=== PATIENT | female | born 1985 | race Caucasian/White ===

== ENCOUNTER 2018-07-07 13:59 | Emergency (ER) | payer OTHER, SELFPAY ==
[2018-07-07 14:10] VITALS: BP 168/106; PULSE 84; RESP 20; TEMP 37.3; O2SAT 97
[2018-07-07 17:03] LABS: Add Manual Diff / Slide Review NO; Basophils Absolute Auto 100 /uL (0-100); Basophils Percent Auto 0.8 % (0-2); Eosinophils Absolute Auto 300 /uL (0-450); Eosinophils Percent Auto 3.1 % (2-4); Hematocrit 39.9 % (36-46); Hemoglobin 13.2 g/dL (12.0-16.0); Lymphocytes Absolute Auto 3000 /uL (1100-4500); Lymphocytes Percent Auto 27.2 % (25-40); Mean Corpuscular HGB Conc 33.2 % (30-36); Mean Corpuscular Hemoglobin 27.8 PG (26-34); Mean Corpuscular Volume 83.8 fL (80-100); Monocytes Absolute Auto 500 /uL (0-900); Monocytes Percent Auto 4.5 % (3-14); Neutrophils Absolute Auto 7100 /uL (1500-7000); Neutrophils Percent Auto 64.4 % (50-75); Platelet Count 282 X10^3/uL (150-400); Red Blood Cell Count 4.76 X10^6/uL (4.0-5.2); Red Cell Distribution Width 13.2 % (11.6-14.8)
[2018-07-07 17:07] LABS: Alanine Aminotransferase 48 IU/L (9-52); Albumin 4.7 g/dL (3.5-5.0); Albumin Globulin Ratio 1.4 (1.0-2.8); Alkaline Phosphatase 56 U/L (38-126); Aspartate Aminotransferase 32 IU/L (14-36); Bilirubin Total 0.8 mg/dL (0.2-1.3); Blood Urea Nitrogen 7 mg/dL (7-17); Calcium 9.7 mg/dL (8.4-10.2); Carbon Dioxide 24 mmol/L (22-32); Chloride 105 mmol/L (98-107); Estimated Glomerular Filt Rate > 60.0 mL/min (>60); Globulin 3.3 g/dL (1.7-4.1); Glucose 108 mg/dL (70-100); HEMOLYSIS 23 (0-50); Potassium 4.2 mmol/L (3.4-5.1); Sodium 139 mmol/L (137-145)
[2018-07-07 17:09] VITALS: BP 128/91; PULSE 76; RESP 21; O2SAT 97
--- NOTE | 2018-07-07 18:10 | DI.US.S_ITS ---
PROCEDURE: US PELVIC COMPLETE INDICATIONS: RIGHT LOWER QUADRANT PAIN TECHNIQUE: Real-time scanning was performed of the pelvic organs, with image documentation. Additional endovaginal scanning was necessary due to incomplete visualization of the adnexal and endometrial structures by transabdominal scanning. COMPARISON: None. FINDINGS: Transabdominal scanning: Limited scanning through the kidneys shows no hydronephrosis. 4.5 mm nonobstructing right renal stone. No pathologic free abdominal or pelvic fluid. Endovaginal scanning: Uterus: Uterus is normal in size at 6.8 x 3.6 x 4.4 cm. The endometrium measures 7.5 mm in combined thickness. Nabothian cyst is noted. IUD is in appropriate position. Ovaries: Right ovary measures 28 x 25 x 32 mm. Left ovary measures 30 x 12 x 12 m. Right ovarian cyst is noted measuring 26 x 22 x 21 mm. IMPRESSION: 1. Right ovarian cyst. 2. Nonobstructing right renal stone. Dictated by: Saundra Castellon M.D. on 07/07/2018 at 18:24 Approved by: Saundra Castellon M.D. on 07/07/2018 at 18:29
--- NOTE | 2018-07-07 19:14 | DI.CT.S_ITS ---
PROCEDURE: CT ABDOMEN PELVIS W CON INDICATIONS: RLQ pain. Per technologist, the patient reports that they had their appendix removed in 2003. TECHNIQUE: After the administration of intravenous contrast, 5 mm thick sections acquired from the diaphragm to the symphysis. 5 mm coronal and sagittal reformats were acquired. For radiation dose reduction, the following was used: automated exposure control, adjustment of mA and/or kV according to patient size. COMPARISON: None. FINDINGS: Image quality: Excellent. ABDOMEN: Lung bases: Lung bases are clear. Heart size is normal. Solid organs: There is diffuse hypoattenuation most consistent with hepatic steatosis. Gallbladder is unremarkable. Biliary system is non dilated. Pancreas enhances normally. Spleen is normal in size and enhancement. No adrenal nodules. Kidneys demonstrate normal size and enhancement, without hydronephrosis. Subcentimeter hypoattenuating foci within the kidneys bilaterally are too small to fully characterize on this exam, but likely represent renal cysts. There is a punctate nonobstructing nephrolith within the right kidney, best seen on axial image 31 of series 2. Peritoneum and bowel: Bowel loops demonstrate normal wall thickness and caliber. No free fluid or air. Appendix is not clearly identified on this exam, but there are no right lower quadrant inflammatory findings to suggest acute appendicitis. Moderate stool burden throughout the colon. Nodes and vessels: No retroperitoneal or mesenteric adenopathy by size criteria. Aorta and inferior vena cava are normal in size. Miscellaneous: There is an approximately 1.0 cm fat-containing umbilical hernia. PELVIS: Genitourinary: Bladder wall thickness is normal. Miscellaneous: No inguinal hernias or adenopathy. The uterus is present. An intrauterine device is identified within the uterus within the endometrial canal near the fundus. Right ovarian follicle/cyst measure up to 2.7 cm in greatest diameter. Bones: No suspicious bony lesions. No vertebral body compression fractures. IMPRESSION: 1. The appendix is not clearly identified on this exam, consistent with provided clinical history, and there are no right lower quadrant inflammatory findings to suggest an acute appendicitis. 2. Diffuse hepatic hypoattenuation most consistent with hepatic steatosis. 3. Punctate nonobstructing nephrolith within the right kidney. No hydronephrosis. 4. Intrauterine device in the expected location within the endometrial canal near the fundus. 5. Approximately 1.0 cm fat-containing umbilical hernia. Dictated by: Jaspal Ibanez M.D. on 07/07/2018 at 19:58 Approved by: Jaspal Ibanez M.D. on 07/07/2018 at 20:10
--- NOTE | 2018-07-07 19:34 | ED.ABDPAIN ---
HPI - Abdominal Pain <Carmella BoltonMATA-BC - Last Filed: 07/07/18 22:16> General Chief Complaint: Abdominal Pain Stated Complaint: ABDOMINAL PAIN Time Seen by Provider: 07/07/18 16:57 Source: patient Mode of arrival: ambulatory Limitations: no limitations History of Present Illness HPI narrative: Patient is a 32-year-old female nonsmoker who presents with a chief complaint of right lower quadrant pain that has been going on for approximately 1 month. Two days ago Her right lower quadrant pain became much worse. she denies any fever. She denies dysuria urgency or frequency. She denies any chest pain shortness of breath. She does endorse some nausea But no vomiting. She denies any vaginal discharge vaginal bleeding. She denies any blood in her urine. 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 Patient does endorse a recent IUD placement 9 days ago Related Data Home Medications Medication Instructions Recorded Confirmed acetaminophen #0 03/03/17 acetaminophen-pamabrom [Midol] 2 tab PO Q6HP PRN #0 03/03/17 alprazolam [Xanax] 0.5 mg PO BIDP PRN #0 03/03/17 buspirone 10 mg PO TIDP PRN #0 03/03/17 epinephrine 0.3 mg IJ #0 03/03/17 esomeprazole magnesium [Nexium] #0 03/03/17 ibuprofen 800 mg PO TIDP PRN #0 03/03/17 metronidazole [Flagyl] 500 mg PO Q8H #0 03/03/17 rabeprazole [Aciphex] 20 mg PO QDAY #0 03/03/17 triamcinolone acetonide [Kenalog] 1 spray TOPICAL #0 03/03/17 zolpidem 5 mg PO QDAY #0 03/03/17 Previous Rx's Medication Instructions Recorded nitrofurantoin monohyd/m-cryst 100 mg PO BID #20 cap 07/07/18 [Macrobid] Allergies Allergy/AdvReac Type Severity Reaction Status Date / Time ondansetron [ONDANSETRON] Allergy Severe severe Unverified 07/29/17 12:48 nausea. peanut [PEANUT] Allergy Severe ANAPHYLAXIS Unverified 07/29/17 12:48 latex [LATEX] Allergy Unknown RASH Unverified 07/29/17 12:48 Sulfa (Sulfonamide Allergy Unknown RASH Unverified 07/29/17 12:48 Antibiotics) [SULFA (SULFONAMIDE ANTIBIOTICS)] Review of Systems <[facility] - Last Filed: 07/07/18 22:16> Review of Systems GENERAL: Denies chills, fatigue, malaise, fever, sweats. HEENT: Denies sinus pain, ear pain, sore throat, difficulty swallowing, dizziness. RESPIRATORY: Denies dyspnea, cough, wheezing, hemoptysis, sputum. CARDIOVASCULAR: Denies chest pain, palpitations, orthopnea, edema, GASTROINTESTINAL: See HPI : see HPI MUSCULOSKELETAL: denies weakness, joint pain, or bony pain SKIN: Denies rash, skin lesions, or other NEUROLOGIC: Denies weakness, headache, numbness, change in speech, confusion, seizures, incoordination. PSYCHIATRIC: No concerning psychosocial issues. 12 point review of systems is negative except for those stated above PFSH <Carmella Bolton [facility] - Last Filed: 07/07/18 22:16> Social History Smoking Status: Never smoker Social History Smoking Status: Never smoker Exam <Carmella Bolton [facility] - Last Filed: 07/07/18 22:16> Narrative Exam Narrative: GENERAL: This is a well-nourished, well-developed patient, Lying on stretcher HEAD: Atraumatic. Normocephalic. No temporal or scalp tenderness. EYES: Pupils equal round and reactive. Extraocular motions intact. No scleral icterus. No injection or drainage. ENT: Nose without bleeding, purulent drainage or septal hematoma. Throat without erythema, tonsillar hypertrophy or exudate. Uvula midline. Airway patent. NECK: Trachea midline. No JVD or lymphadenopathy. Supple, nontender, no meningeal signs. CARDIOVASCULAR: Regular rate and rhythm without murmurs, gallops, or rubs. RESPIRATORY: Clear to auscultation. Breath sounds equal bilaterally. No wheezes, rales, or rhonchi. no cough. No increased respiratory effort. GASTROINTESTINAL: Abdomen soft, , nondistended. No hepato-splenomegaly, or palpable masses. No guarding. Significant tenderness to palpation of right lower quadrant. negative Yeh sign. Positive bowel sounds all 4 quadrants. EXTREMITIES: No clubbing, cyanosis, or edema. No joint tenderness, effusion, or edema noted. BACK: Nontender without deformity or crepitance. No flank tenderness. NEURO: AOx3. SKIN: No rash or erythema. Initial Vital Signs Initial Vital Signs: Vital Signs Temperature 99.1 F 07/07/18 14:10 Pulse Rate 84 07/07/18 14:10 Respiratory Rate 20 07/07/18 14:10 Blood Pressure 168/106 H 07/07/18 14:10 Pulse Oximetry 97 07/07/18 14:10 <Bar Astudillo DO - Last Filed: 07/07/18 22:27> Initial Vital Signs Initial Vital Signs: Vital Signs Temperature 99.1 F 07/07/18 14:10 Pulse Rate 84 07/07/18 14:10 Respiratory Rate 20 07/07/18 14:10 Blood Pressure 168/106 H 07/07/18 14:10 Pulse Oximetry 97 07/07/18 14:10 Course <ROJELIO WilliamsonBC - Last Filed: 07/07/18 22:16> Course Narrative: I checked on the patient several times throughout her stay in the emergency department Orders Ordered: ED Orders 07/07/18 16:00 Urine Culture Stat Urine Microscopic Stat 07/07/18 16:45 CBC [Complete Blood Count AUTO DIFF] Stat Comprehensive Metabolic Panel Stat 07/07/18 18:10 US pelvic complete Stat 07/07/18 19:14 CT abdomen pelvis w con Stat Discontinued Medications Ketorolac Tromethamine (Toradol) 30 mg IV NOW ONE Stop: 07/07/18 20:35 Last Admin: 07/07/18 20:39 Dose: 30 mg Nitrofurantoin Macrocrystals (Macrobid 100 Mg Capsule) 100 mg PO NOW ONE Stop: 07/07/18 20:35 Last Admin: 07/07/18 20:39 Dose: 100 mg Vital Signs - 8 hr 07/07/18 17:09 07/07/18 21:04 Pulse Rate 76 72 Respiratory Rate 21 16 Blood Pressure [Right Arm] 128/91 H 134/89 Pulse Oximetry 97 99 <DO Liliane Meade Last Filed: 07/07/18 22:27> Orders Ordered: ED Orders 07/07/18 16:00 Urine Culture Stat Urine Microscopic Stat 03/20/19 16:45 CBC [Complete Blood Count AUTO DIFF] Stat Comprehensive Metabolic Panel Stat 07/07/18 18:10 US pelvic complete Stat 07/07/18 19:14 CT abdomen pelvis w con Stat Discontinued Medications Ketorolac Tromethamine (Toradol) 30 mg IV NOW ONE Stop: 07/07/18 20:35 Last Admin: 07/07/18 20:39 Dose: 30 mg Nitrofurantoin Macrocrystals (Macrobid 100 Mg Capsule) 100 mg PO NOW ONE Stop: 07/07/18 20:35 Last Admin: 07/07/18 20:39 Dose: 100 mg Vital Signs - 8 hr 07/07/18 17:09 07/07/18 21:04 Pulse Rate 76 72 Respiratory Rate 21 16 Blood Pressure [Right Arm] 128/91 H 134/89 Pulse Oximetry 97 99 MDM - Abdominal Pain <MATA Williamson- - Last Filed: 07/07/18 22:16> Lab Data Result diagrams: 07/07/18 16:45 07/07/18 16:45 Lab Results 07/07/18 07/07/18 07/07/18 Range/Units 16:00 16:45 16:45 WBC 11.0 (4.5-11.0) X10^3/uL RBC 4.76 (4.0-5.2) X10^6/uL Hgb 13.2 (12.0-16.0) g/dL Hct 39.9 (36-46) % MCV 83.8 (80-100) fL MCH 27.8 (26-34) PG MCHC 33.2 (30-36) % RDW 13.2 (11.6-14.8) % Plt Count 282 (150-400) X10^3/uL Neut % (Auto) 64.4 (50-75) % Lymph % (Auto) 27.2 (25-40) % Boundary % (Auto) 4.5 (3-14) % Eos % (Auto) 3.1 (2-4) % Baso % (Auto) 0.8 (0-2) % Neut # (Auto) 7100 H (4681-7554) /uL Lymph # (Auto) 3000 (8503-9443) /uL [place] # (Auto) 500 (0-900) /uL Eos # (Auto) 300 (0-450) /uL Baso # (Auto) 100 (0-100) /uL Sodium 139 (137-145) mmol/L Potassium 4.2 (3.4-5.1) mmol/L Chloride 105 (98-107) mmol/L Carbon Dioxide 24 (22-32) mmol/L BUN 7 (7-17) mg/dL Creatinine 0.70 (0.52-1.04) mg/dL Estimated GFR > 60.0 (>60) mL/min BUN/Creatinine Ratio 10.0 (6-22) Glucose 108 H (70-100) mg/dL Calcium 9.7 (8.4-10.2) mg/dL Total Bilirubin 0.8 (0.2-1.3) mg/dL AST 32 (14-36) IU/L ALT 48 (9-52) IU/L Alkaline Phosphatase 56 (38-126) U/L Total Protein 8.0 (6.3-8.2) g/dL Albumin 4.7 (3.5-5.0) g/dL Globulin 3.3 (1.7-4.1) g/dL Albumin/Globulin Ratio 1.4 (1.0-2.8) Urine RBC 1-5/hpf (0-5/HPF) Urine WBC 1-5/hpf (0-5/HPF) Ur Squamous Epith Cells 5-10 /hpf H Amorphous Sediment 1+ Urine Bacteria Moderate (10-30) H (None) Urine Mucus 1+ H (Negative) Ur Culture Indicated? Specimen cultured Point of care testing: Point of Care Testing Test Results Negative Urine Dip Bedside Urine Glucose Negative Bedside Urine Bilirubin - Negative Bedside Urine Ketone - Negative Urine Specific [place] 1.025 Bedside Urine Occult Blood + Bedside Urine pH 5.5 Bedside Urine Urobilinogen - Negative Bedside Urine Nitrite - Negative Bedside Urine Leukocytes - Negative Esterase Imaging Data pelvic us: Radiologist's impression: [address] [address] Ultrasound Report Signed Patient: Dixie Ann JMR#: [id number] : 1985Acct:[id number] Age/Sex: 32 / FDate of Service: 07/07/18 Loc: ED Accession Number: [id number] Procedure: US pelvic complete Ordering Provider: Carmella Bolton- PROCEDURE: US PELVIC COMPLETE INDICATIONS: RIGHT LOWER QUADRANT PAIN TECHNIQUE: Real-time scanning was performed of the pelvic organs, with image documentation. Additional endovaginal scanning was necessary due to incomplete visualization of the adnexal and endometrial structures by transabdominal scanning. COMPARISON: None. FINDINGS: Transabdominal scanning: Limited scanning through the kidneys shows no hydronephrosis. 4.5 mm nonobstructing right renal stone. No pathologic free abdominal or pelvic fluid. Endovaginal scanning: Uterus: Uterus is normal in size at 6.8 x 3.6 x 4.4 cm. The endometrium measures 7.5 mm in combined thickness. Nabothian cyst is noted. IUD is in appropriate position. Ovaries: Right ovary measures 28 x 25 x 32 mm. Left ovary measures 30 x 12 x 12 m. Right ovarian cyst is noted measuring 26 x 22 x 21 mm. IMPRESSION: 1. Right ovarian cyst. 2. Nonobstructing right renal stone. Dictated by: Saundar Castellon M.D. on 07/07/2018 at 18:24 Approved by: Saundra Castellon M.D. on 07/07/2018 at 18:29 CT scan - abdomen: Radiologist's impression: [place] [address] CT Scan Report Signed Patient: Dixie Ann JMR#: [id number] : 1985Acct:[id number] Age/Sex: 32 / FDate of Service: 07/07/18 Loc: ED Accession Number: [id number] Procedure: CT abdomen pelvis w con Ordering Provider: Carmella Bolton [facility] PROCEDURE: CT ABDOMEN PELVIS W CON INDICATIONS: RLQ pain. Per technologist, the patient reports that they had their appendix removed in 2003. TECHNIQUE: After the administration of intravenous contrast, 5 mm thick sections acquired from the diaphragm to the symphysis. 5 mm coronal and sagittal reformats were acquired. For radiation dose reduction, the following was used: automated exposure control, adjustment of mA and/or kV according to patient size. COMPARISON: None. FINDINGS: Image quality: Excellent. ABDOMEN: Lung bases: Lung bases are clear. Heart size is normal. Solid organs: There is diffuse hypoattenuation most consistent with hepatic steatosis. Gallbladder is unremarkable. Biliary system is non dilated. Pancreas enhances normally. Spleen is normal in size and enhancement. No adrenal nodules. Kidneys demonstrate normal size and enhancement, without hydronephrosis. Subcentimeter hypoattenuating foci within the kidneys bilaterally are too small to fully characterize on this exam, but likely represent renal cysts. There is a punctate nonobstructing nephrolith within the right kidney, best seen on axial image 31 of series 2. Peritoneum and bowel: Bowel loops demonstrate normal wall thickness and caliber. No free fluid or air. Appendix is not clearly identified on this exam, but there are no right lower quadrant inflammatory findings to suggest acute appendicitis. Moderate stool burden throughout the colon. Nodes and vessels: No retroperitoneal or mesenteric adenopathy by size criteria. Aorta and inferior vena cava are normal in size. Miscellaneous: There is an approximately 1.0 cm fat-containing umbilical hernia. PELVIS: Genitourinary: Bladder wall thickness is normal. Miscellaneous: No inguinal hernias or adenopathy. The uterus is present. An intrauterine device is identified within the uterus within the endometrial canal near the fundus. Right ovarian follicle/cyst measure up to 2.7 cm in greatest diameter. Bones: No suspicious bony lesions. No vertebral body compression fractures. IMPRESSION: 1. The appendix is not clearly identified on this exam, consistent with provided clinical history, and there are no right lower quadrant inflammatory findings to suggest an acute appendicitis. 2. Diffuse hepatic hypoattenuation most consistent with hepatic steatosis. 3. Punctate nonobstructing nephrolith within the right kidney. No hydronephrosis. 4. Intrauterine device in the expected location within the endometrial canal near the fundus. 5. Approximately 1.0 cm fat-containing umbilical hernia. Dictated by: Jaspal Ibanez M.D. on 07/07/2018 at 19:58 Approved by: Jaspal Ibanez M.D. on 07/07/2018 at 20:10 MDM Narrative Medical decision making narrative: The patient is a 30 year old female who presents with right lower quadrant pain that is significant on exam. given her recent IUD placement, she is at higher risk of ovarian cyst and subsequent torsion, so I obtained a pelvic ultrasound. Pelvic ultrasound revealed an ovarian cyst. She thinks she still has an appendix, so I obtained an abdominal CT with contrast. She has no acute findings on CT scan. However she does have bacteria in her urine, so I placed her on Macrobid. A urine culture is pending at this point time. She was given Toradol in the emergency department for pain. I encouraged her to follow up with primary care provider in the next few days. I encouraged her to not take NSAIDs or ibuprofen for 6-8 hours after her Toradol injection. Discussed return precautions of inability keep down fluid, worsening pain etc. Patient no questions or concerns upon discharge. She was afebrile and hemodynamically stable throughout her stay in the emergency department. She remained nontoxic appearing throughout her stay. <Bar Astudillo, DO - Last Filed: 07/07/18 22:27> Lab Data Lab Results 07/07/18 07/07/18 07/07/18 Range/Units 16:00 16:45 16:45 WBC 11.0 (4.5-11.0) X10^3/uL RBC 4.76 (4.0-5.2) X10^6/uL Hgb 13.2 (12.0-16.0) g/dL Hct 39.9 (36-46) % MCV 83.8 (80-100) fL MCH 27.8 (26-34) PG MCHC 33.2 (30-36) % RDW 13.2 (11.6-14.8) % Plt Count 282 (150-400) X10^3/uL Neut % (Auto) 64.4 (50-75) % Lymph % (Auto) 27.2 (25-40) % Boundary % (Auto) 4.5 (3-14) % Eos % (Auto) 3.1 (2-4) % Baso % (Auto) 0.8 (0-2) % Neut # (Auto) 7100 H (1608-2354) /uL Lymph # (Auto) 3000 (7558-5051) /uL [place] # (Auto) 500 (0-900) /uL Eos # (Auto) 300 (0-450) /uL Baso # (Auto) 100 (0-100) /uL Sodium 139 (137-145) mmol/L Potassium 4.2 (3.4-5.1) mmol/L Chloride 105 (98-107) mmol/L Carbon Dioxide 24 (22-32) mmol/L BUN 7 (7-17) mg/dL Creatinine 0.70 (0.52-1.04) mg/dL Estimated GFR > 60.0 (>60) mL/min BUN/Creatinine Ratio 10.0 (6-22) Glucose 108 H (70-100) mg/dL Calcium 9.7 (8.4-10.2) mg/dL Total Bilirubin 0.8 (0.2-1.3) mg/dL AST 32 (14-36) IU/L ALT 48 (9-52) IU/L Alkaline Phosphatase 56 (38-126) U/L Total Protein 8.0 (6.3-8.2) g/dL Albumin 4.7 (3.5-5.0) g/dL Globulin 3.3 (1.7-4.1) g/dL Albumin/Globulin Ratio 1.4 (1.0-2.8) Urine RBC 1-5/hpf (0-5/HPF) Urine WBC 1-5/hpf (0-5/HPF) Ur Squamous Epith Cells 5-10 /hpf H Amorphous Sediment 1+ Urine Bacteria Moderate (10-30) H (None) Urine Mucus 1+ H (Negative) Ur Culture Indicated? Specimen cultured Point of care testing: Point of Care Testing Test Results Negative Urine Dip Bedside Urine Glucose Negative Bedside Urine Bilirubin - Negative Bedside Urine Ketone - Negative Urine Specific [place] 1.025 Bedside Urine Occult Blood + Bedside Urine pH 5.5 Bedside Urine Urobilinogen - Negative Bedside Urine Nitrite - Negative Bedside Urine Leukocytes - Negative Esterase Discharge Plan Departure Patient Disposition: Home Clinical Impression: UTI (urinary tract infection) Qualifiers: Urinary tract infection type: site unspecified Hematuria presence: with hematuria Qualified Code(s): N39.0 - Urinary tract infection, site not specified Ovarian cyst Qualifiers: Laterality: right Qualified Code(s): N83.201 - Unspecified ovarian cyst, right side Discharge Date/Time: 07/07/18 21:07 Interventions: ED Discharge Assessment Last Done: 07/07/18 21:06 Instructions: DI for Urinary Tract Infection (UTI), DI for Ovarian Cyst Activity Restrictions/Additional Instructions: I am starting you on an antibiotic for her urinary tract infection. Please follow up with primary care provider regarding her ovarian cyst. Monitor for fevers, inability keep down fluids and signs of worsening. Please evaluated if you have any acute concerns. Prescriptions: New nitrofurantoin monohyd/m-cryst [Macrobid] 100 mg capsule 100 mg PO BID Qty: 20 RF: 0 No Action rabeprazole [Aciphex] 20 MG tablet,delayed release (DR/EC) 20 mg PO QDAY Qty: 0 RF: 0 zolpidem 5 MG tablet 5 mg PO QDAY Qty: 0 RF: 0 metronidazole [Flagyl] 500 MG tablet 500 mg PO Q8H Qty: 0 RF: 0 buspirone 10 MG tablet 10 mg PO TIDP PRNQty: 0 RF: 0 epinephrine 0.3 MG/0.3 ML auto-injector 0.3 mg IJ Qty: 0 RF: 0 ibuprofen 800 MG tablet 800 mg PO TIDP PRNQty: 0 RF: 0 triamcinolone acetonide [Kenalog] 63 GM aerosol 1 spray Topical Qty: 0 RF: 0 acetaminophen 650 mg tablet extended release Qty: 0 RF: 0 alprazolam [Xanax] 0.5 MG tablet 0.5 mg PO BIDP PRNQty: 0 RF: 0 acetaminophen-pamabrom [Midol] 500 MG/25 MG tablet 2 tab PO Q6HP PRNQty: 0 RF: 0 esomeprazole magnesium [Nexium] 40 mg capsule,delayed release(DR/EC) Qty: 0 RF: 0 Referrals: Kevin Cox [Primary Care Provider] - <Bar Astudillo DO - Last Filed: 07/07/18 22:27> Cosign ED Attending Caitlyn Attestation: I was available for consultation during this patient's emergency department encounter
[2018-07-07 20:00] LABS: RBC Urine 1-5/HPF (0-5/HPF); Squamous Epithelial Cell Urine 5-10 /HPF; WBC Urine 1-5/HPF (0-5/HPF)
[2018-07-07 20:01] LABS: Amorphous Sediment Urine 1+; Bacteria Urine Moderate (10-30); Culture Indicated Urine Specimen Cultured; Mucus Urine 1+ (Negative)
[2018-07-07] MEDS: KETOROLAC 60 MG/2 ML VIAL 30 MG IV (20:39)
[2018-07-07] MEDS: NITROFURANTOIN ER 100 MG CAPSULE PO (20:39)
[2018-07-07 21:04] VITALS: BP 134/89; PULSE 72; RESP 16; O2SAT 99
== END 2018-07-07 21:07 | disposition home or self-care (01) ==
PROVIDERS: Emergency Provider Nurse Practitioner Family; Family Provider Radiology Diagnostic Radiology; PCP Radiology Diagnostic Radiology
DX: N39.0 Urinary tract infection, site not specified (principal); N83.201 Unspecified ovarian cyst, right side
CPT/HCPCS: 36591; 74177; 76830; 76856; 80053; 81003; 81015; 81025; 85025; 87086; 96374; 99282; 99285; J1885; Q9967

== ENCOUNTER 2018-07-12 17:58 | Emergency (ER) | payer OTHER, SELFPAY ==
[2018-07-12 18:27] VITALS: BP 156/95; PULSE 79; RESP 18; TEMP 36.9; O2SAT 100; BMI 27.4
[2018-07-12 19:30] LABS: Bacteria Urine Moderate (10-30); Culture Indicated Urine Cult Not Indicated; RBC Urine 1-5/HPF (0-5/HPF); Squamous Epithelial Cell Urine None Seen; WBC Urine 0-1/HPF (0-5/HPF)
--- NOTE | 2018-07-12 20:47 | ED_ITS ---
HPI - Abdominal Pain General Chief Complaint: Abdominal Pain Stated Complaint: RT LOWER ABD PAIN Time Seen by Provider: 07/12/18 20:20 Source: patient Mode of arrival: ambulatory Limitations: no limitations History of Present Illness HPI narrative: Patient is an otherwise healthy 32-year-old female here for evaluation of right lower quadrant abdominal pain. She was seen here in the emergency department recently and was diagnosed with the urinary tract infection. She is currently on Macrobid. She also recently had a IUD placed. Patient states she is not sexually active. No history of STDs. He is not concerned about STDs. She states she is also having a foul-smelling vaginal discharge. Denies any urinary symptoms. Denies any changes in bowel habits. She returns today for continued right lower quadrant abdominal pain. 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 She did have an ultrasound during her last visit here which was relatively unremarkable except for a right-sided ovarian cyst which she states that this is not new. The IUD is in place per that ultrasound. Related Data Home Medications Medication Instructions Recorded Confirmed acetaminophen #0 03/03/17 acetaminophen-pamabrom [Midol] 2 tab PO Q6HP PRN #0 03/03/17 alprazolam [Xanax] 0.5 mg PO BIDP PRN #0 03/03/17 buspirone 10 mg PO TIDP PRN #0 03/03/17 epinephrine 0.3 mg IJ #0 03/03/17 esomeprazole magnesium [Nexium] #0 03/03/17 ibuprofen 800 mg PO TIDP PRN #0 03/03/17 metronidazole [Flagyl] 500 mg PO Q8H #0 03/03/17 rabeprazole [Aciphex] 20 mg PO QDAY #0 03/03/17 triamcinolone acetonide [Kenalog] 1 spray TOPICAL #0 03/03/17 zolpidem 5 mg PO QDAY #0 03/03/17 Previous Rx's Medication Instructions Recorded nitrofurantoin monohyd/m-cryst 100 mg PO BID #20 cap 07/07/18 [Macrobid] doxycycline hyclate 100 mg PO BID 14 Days #28 cap 07/12/18 Allergies Allergy/AdvReac Type Severity Reaction Status Date / Time ondansetron [ONDANSETRON] Allergy Severe severe Verified 07/12/18 22:02 nausea. peanut [PEANUT] Allergy Severe ANAPHYLAXIS Verified 07/12/18 22:02 latex [LATEX] Allergy Unknown RASH Verified 07/12/18 22:02 Sulfa (Sulfonamide Allergy Unknown RASH Verified 07/12/18 22:02 Antibiotics) [SULFA (SULFONAMIDE ANTIBIOTICS)] povidone-iodine Allergy Rash Verified 07/12/18 22:02 [From Betadine] soap [From Betadine] Allergy Rash Verified 07/12/18 22:02 Review of Systems Constitutional Denies fatigue and Denies headache(s) ENT Ears, Nose, Mouth, and Throat: Denies headache(s) Cardiovascular Denies chest pain and Denies dyspnea Respiratory Denies dyspnea Gastrointestinal Gastrointestinal: Reports abdominal pain, Denies diarrhea, Denies nausea and Denies vomiting Genitourinary Denies dysuria, Reports pelvic pain and Reports vaginal discharge Musculoskeletal Denies back pain, Denies myalgias and Denies arthralgias Integumentary/Breasts Denies rash Neurologic Denies headache(s) Endocrine Denies fatigue Hematologic/Lymphatic Denies easy bleeding and Denies easy bruising [facility] Medical History Healthy adult (Acute) Social History Smoking Status: Never smoker Social History Smoking Status: Never smoker Exam Initial Vital Signs Initial Vital Signs: Vital Signs Temperature 98.5 F 07/12/18 18:27 Pulse Rate 79 07/12/18 18:27 Respiratory Rate 18 07/12/18 18:27 Blood Pressure 156/95 H 07/12/18 18:27 Pulse Oximetry 100 07/12/18 18:27 Const General: cooperative, healthy appearing, comfortable, well developed, well groomed and No acute distress Orientation: alert, awake and oriented x3 HENMT Head: normal to inspection and normocephalic Resp Effort & Inspection: normal respiratory effort Auscultation: clear to auscultation bilaterally Cardio Rate: regular rate Rhythm: regular rhythm GI Inspection: non-distended Palpation: soft, No firm and tender (Right adnexa) External Female Exam: external appearance normal Speculum Exam - Cervix: cervical tenderness Bimanual Exam- Vagina & Uterus: cervical tenderness Bimanual Exam- Adnexa, other: adnexal tenderness on the right and no masses noted Skin Lesions: no lesions Rashes: no rashes Neuro General: alert, awake and oriented x3 Cognition: normal cognition Speech: speech normal Extrem General: normal to inspection and capillary refill normal Psych Appearance: grossly normal and well kempt Course Orders Ordered: ED Orders 07/12/18 19:00 Urine Microscopic Stat Discontinued Medications Ceftriaxone Sodium (Rocephin) 250 mg IM NOW ONE Stop: 07/12/18 21:25 Last Admin: 07/12/18 22:42 Dose: 250 mg Doxycycline Hyclate (Vibramycin) 100 mg PO NOW ONE Stop: 07/12/18 21:26 Last Admin: 07/12/18 22:03 Dose: 100 mg Ibuprofen (Advil) 800 mg PO NOW ONE Stop: 07/12/18 22:05 Last Admin: 07/12/18 22:06 Dose: 800 mg Vital Signs - 8 hr 07/12/18 18:27 07/12/18 23:01 Temperature 98.5 F Pulse Rate 79 74 Respiratory Rate 18 14 Blood Pressure 156/95 H 148/89 H Pulse Oximetry 100 97 MDM - Abdominal Pain Lab Data Attestation: I reviewed the patient's lab results. Lab Results 07/12/18 Range/Units 19:00 Urine RBC 1-5/hpf (0-5/HPF) Urine WBC 0-1/hpf (0-5/HPF) Ur Squamous Epith Cells None seen Urine Bacteria Moderate (10-30) H (None) Ur Culture Indicated? Cult not indicated Point of care testing: Point of Care Testing Test Results Negative Urine Dip Bedside Urine Glucose Negative Bedside Urine Bilirubin - Negative Bedside Urine Ketone - Negative Urine Specific Pickerel 1.025 Bedside Urine Occult Blood +/- Bedside Urine pH 6.0 Bedside Urine Protein - Negative Bedside Urine Urobilinogen - Negative Bedside Urine Nitrite - Negative Bedside Urine Leukocytes - Negative Esterase MDM Narrative Medical decision making narrative: Patient is currently on Macrobid for urinary tract infection. Her urine today is unremarkable however she is half-way through her treatment. I feel it is prudent for her to continue the antibiotic treatment. Patient did recently have an IUD placed. She does have some thick discharge. Does have cervical motion tenderness and right adnexa tenderness. I do have concerns for PID. She does not seem to be tender midline over the uterus. Given her recent IUD placement I am concerned about a potential infection for this. I discussed the case with Dr. Barlow who is on-call for OB this evening who stated that current practice is such that the IUD can be left in place and the patient can be treated prior to removal. I feel that this is warranted given her follow-up with measurement operator in 2 days. She was given Rocephin. Will send home with doxycycline. Will hold on any further ultrasound for now. Patient was given return precautions. She expressed understanding and agreement plan. Discharge Plan Departure Patient Disposition: Home Clinical Impression: Pelvic inflammatory disease (PID) Discharge Date/Time: 07/12/18 23:03 Interventions: ED Discharge Assessment Last Done: 07/12/18 23:01 Instructions: DI for Pelvic Inflammatory Disease Activity Restrictions/Additional Instructions: I have concern today based on your physical exam that you have PID. You were given antibiotics here in the emergency department and a prescription for this. Like we discussed here in the ER I did talk with my OB provider who stated that leaving the IUD in is not unreasonable to see if the antibiotic treatment helps. Keep your appointment on Thursday with your own OB provider. Return to the emergency department for any new or worsening symptoms Prescriptions: New doxycycline hyclate 100 mg capsule 100 mg PO BID 14 Days Qty: 28 RF: 0 No Action rabeprazole [Aciphex] 20 MG tablet,delayed release (DR/EC) 20 mg PO QDAY Qty: 0 RF: 0 zolpidem 5 MG tablet 5 mg PO QDAY Qty: 0 RF: 0 metronidazole [Flagyl] 500 MG tablet 500 mg PO Q8H Qty: 0 RF: 0 buspirone 10 MG tablet 10 mg PO TIDP PRNQty: 0 RF: 0 epinephrine 0.3 MG/0.3 ML auto-injector 0.3 mg IJ Qty: 0 RF: 0 ibuprofen 800 MG tablet 800 mg PO TIDP PRNQty: 0 RF: 0 triamcinolone acetonide [Kenalog] 63 GM aerosol 1 spray Topical Qty: 0 RF: 0 acetaminophen 650 mg tablet extended release Qty: 0 RF: 0 alprazolam [Xanax] 0.5 MG tablet 0.5 mg PO BIDP PRNQty: 0 RF: 0 acetaminophen-pamabrom [Midol] 500 MG/25 MG tablet 2 tab PO Q6HP PRNQty: 0 RF: 0 esomeprazole magnesium [Nexium] 40 mg capsule,delayed release(DR/EC) Qty: 0 RF: 0 nitrofurantoin monohyd/m-cryst [Macrobid] 100 mg capsule 100 mg PO BID Qty: 20 RF: 0 Referrals: eKvin Cox [Primary Care Provider] -
--- NOTE | 2018-07-12 21:06 | PC.NURSE ---
Stand by assist for bimanual pelvic exam by Dr Astudillo. Pt with obvious tenderness but tolerated well. Warm blankets given to abd for comfort.
[2018-07-12] MEDS: DOXYCYCLINE HYCLATE 100 MG TABLET PO (22:03)
[2018-07-12] MEDS: IBUPROFEN 400 MG TABLET 800 MG PO (22:06)
[2018-07-12] MEDS: cefTRIAXone 500 MG VIAL 250 MG IM (22:42)
[2018-07-12 23:01] VITALS: BP 148/89; PULSE 74; RESP 14; O2SAT 97
== END 2018-07-12 23:03 | disposition home or self-care (01) ==
PROVIDERS: Emergency Provider Emergency Medicine; Family Provider Radiology Diagnostic Radiology; PCP Radiology Diagnostic Radiology
DX: N73.9 Female pelvic inflammatory disease, unspecified (principal)
CPT/HCPCS: 81003; 81015; 81025; 96372; 99282; 99284; J0696

== ENCOUNTER 2018-07-13 14:07 | Emergency (ER) | payer OTHER, SELFPAY ==
[2018-07-13 14:15] VITALS: BP 150/98; PULSE 81; RESP 18; TEMP 36.9; O2SAT 98
--- NOTE | 2018-07-13 14:31 | DI.US.S_ITS ---
PROCEDURE: US PELVIC COMPLETE INDICATIONS: CONITNUED RIGHT PELVIC PAIN TECHNIQUE: Real-time scanning was performed of the pelvic organs, with image documentation. Additional endovaginal scanning was necessary due to incomplete visualization of the adnexal and endometrial structures by transabdominal scanning. COMPARISON: [facility], CT, CT ABDOMEN PELVIS W CON, 07/07/2018, 19:33. [facility], US, US PELVIC COMPLETE, 07/07/2018, 18:40. FINDINGS: Transabdominal scanning: Limited scanning through the kidneys shows no hydronephrosis. No pathologic free abdominal or pelvic fluid. Endovaginal scanning: Uterus: Uterus is normal in size at 3.1 x 5.2 x 7.7 cm. The endometrial canal contains a IUD centrally positioned. Ovaries: The right ovary measures 3.3 x 3.1 x 4.3 cm overall, with a right ovarian cyst now measuring 3.9 x 3.0 x 2.8 cm with complex low-level internal echoes (previously measuring 2.6 x 2.2 x 2.1 cm 07/07/18). The left ovary measures 2.8 x 1.6 x 2.2 cm. IMPRESSION: Centrally positioned IUD within the endometrial canal. Note is again made of a complex appearing nabothian cyst at the right cervix measuring 1.3 x 1.0 x 1.0 cm, containing low-level internal echoes. Additionally, the right ovary contains a enlarging cyst that had previously measured approximately 2.6 cm in maximal dimension and now measures 3.9 cm (6 days difference). This likely indicates a hemorrhagic right ovarian cyst as the underlying cause of that appearance. Followup evaluation of both the cervical complex cyst in the right complex ovarian cyst is recommended in 6-8 weeks. Should these persist followup by gynecological consultation would be recommended. Dictated by: Amador Musa M.D. on 07/13/2018 at 15:35 Approved by: Amador Musa M.D. on 07/13/2018 at 15:40
--- NOTE | 2018-07-13 14:36 | ED.FEMALEGU ---
HPI - Female Genitourinary <GURJIT Shields - Last Filed: 07/13/18 22:32> General Chief complaint: Urogenital-Female Stated complaint: lower right abdominal pain,cannot feel right leg Time Seen by Provider: 07/13/18 14:13 Source: patient Mode of arrival: ambulatory Limitations: no limitations History of Present Illness HPI Narrative: 32-year-old healthy female that is a nonsmoker for complaint of having pain to her right lower quadrant/pelvic region for the past week. She has been seen in the emergency room for this a couple times approximately 6 days ago she had an ultrasound that showed a right ovarian cyst and also a CT that also showed right ovarian cyst no other acute findings were found. She was seen in the emergency room last night due to pain and was treated for concern for PID with antibiotics. She reports worsening pain today. She states the pain radiates down into her left thigh area. She states she has had a thickened vaginal discharge over no vaginal bleeding. She has an IUD which was verified in place last night while in the emergency room. She denies any urinary symptoms at this timeframe. No fevers. Positive p.o. intake. No nausea vomiting. She denies any stressors relievers of her discomfort. No flank pain. MD Complaint: pelvic pain Related Data Home Medications Medication Instructions Recorded Confirmed Midol 2 tab PO Q6HP PRN #0 03/03/17 07/13/18 acetaminophen 650 mg PO PRN PRN #0 03/03/17 07/13/18 alprazolam [Xanax] 0.5 mg PO BID PRN #0 03/03/17 07/13/18 epinephrine 0.3 mg IJ PRN PRN #0 03/03/17 07/13/18 ibuprofen 800 mg PO TIDP PRN #0 03/03/17 07/13/18 clobetasol 1 applic TOPICAL DIRECTED 07/13/18 07/13/18 fluocinolone and shower cap 1 applic TOPICAL DIRECTED 07/13/18 07/13/18 ketoconazole 1 applic TOPICAL DIRECTED 07/13/18 07/13/18 omeprazole magnesium [Prilosec OTC] 20 mg PO QAM 07/13/18 07/13/18 Previous Rx's Medication Instructions Recorded nitrofurantoin monohyd/m-cryst 100 mg PO BID #20 cap 07/07/18 [Macrobid] doxycycline hyclate 100 mg PO BID 14 Days #28 cap 07/12/18 hydrocodone-acetaminophen [Tarkio] 1 tab PO Q6H PRN #10 tab 07/13/18 Allergies Allergy/AdvReac Type Severity Reaction Status Date / Time ondansetron [ONDANSETRON] Allergy Severe severe Verified 07/12/18 22:02 nausea. peanut [PEANUT] Allergy Severe ANAPHYLAXIS Verified 07/12/18 22:02 latex [LATEX] Allergy Unknown RASH Verified 07/12/18 22:02 Sulfa (Sulfonamide Allergy Unknown RASH Verified 07/12/18 22:02 Antibiotics) [SULFA (SULFONAMIDE ANTIBIOTICS)] povidone-iodine Allergy Rash Verified 07/12/18 22:02 [From Betadine] soap [From Betadine] Allergy Rash Verified 07/12/18 22:02 Review of Systems <GURJIT Shields - Last Filed: 07/13/18 22:32> Constitutional Denies chills, Denies fever(s), Denies lethargy and Denies weakness Eyes Denies change in vision, Denies eye discharge, Denies irritation and Denies loss of vision ENT Ears, Nose, Mouth, and Throat: Denies change in voice, Denies neck pain, Denies sore throat and Denies throat swelling Cardiovascular Denies chest pain, Denies irregular heart rhythm, Denies lightheadedness, Denies palpitations and Denies orthopnea Respiratory Denies wheezing Gastrointestinal Comments: Right pelvic pain Genitourinary Denies hematuria, Denies flank pain, Denies urinary incontinence and Denies urinary urgency Musculoskeletal Denies neck pain Integumentary/Breasts Denies pruritus, Denies erythema, Denies rash and Denies wounds Neurologic Denies confusion, Denies loss of vision and Denies weakness Psychiatric Denies anxiety, Denies confusion, Denies depression, Denies homicidal ideation and Denies suicidal ideation Endocrine Denies palpitations Hematologic/Lymphatic Denies easy bruising Allergic/Immunologic Denies urticaria, Denies throat swelling and Denies wheezing PFSH <GURJIT Shields - Last Filed: 07/13/18 22:32> Medical History Healthy adult (Acute) Social History Smoking Status: Never smoker Social History Smoking Status: Never smoker Exam <GURJIT Shields - Last Filed: 07/13/18 22:32> Initial Vital Signs Initial Vital Signs: Vital Signs Temperature 98.4 F 07/13/18 14:15 Pulse Rate 81 07/13/18 14:15 Respiratory Rate 18 07/13/18 14:15 Blood Pressure 150/98 H 07/13/18 14:15 Pulse Oximetry 98 07/13/18 14:15 Const General: cooperative and well developed Nutritional Appearance: well nourished Orientation: alert, awake, oriented x3 and not confused HENMT Mouth: oral mucosae normal and moist mucous membranes Eyes Conjunctivae: conjunctivae normal Sclera: sclerae normal Pupils: PERRL EOM: EOM intact bilaterally Cardio Rate: regular rate Rhythm: regular rhythm Heart Sounds: no click, no gallops, no murmurs and no rubs Pulses: normal peripheral pulses GI Inspection: non-distended Palpation: soft, no hepatosplenomegaly, No guarding, No pulsatile mass and No tender Auscultation: normal bowel sounds Other: Tenderness to the right pelvic region. General: No CVA tenderness Neuro General: alert, oriented x3, gait normal and no focal motor deficits Speech: speech normal Extrem General: full ROM, no clubbing, cyanosis or edema, no pedal edema and no calf tenderness Other: Right leg with no tenderness. No signs of trauma. Distal sensation is intact. Distal range of motions intact for distal pulses are intact. <Bar Astudillo DO - Last Filed: 07/13/18 23:16> Initial Vital Signs Initial Vital Signs: Vital Signs Temperature 98.4 F 07/13/18 14:15 Pulse Rate 81 07/13/18 14:15 Respiratory Rate 18 07/13/18 14:15 Blood Pressure 150/98 H 07/13/18 14:15 Pulse Oximetry 98 07/13/18 14:15 Course <GURJIT Shields - Last Filed: 07/13/18 22:32> Orders Ordered: ED Orders 07/13/18 14:31 US pelvic complete Stat 07/13/18 14:40 Complete Blood Count AUTO DIFF Stat Comprehensive Metabolic Panel Stat Lipase Stat Discontinued Medications Diphenhydramine HCl (Benadryl) 25 mg IV NOW ONE Stop: 07/13/18 14:32 Last Admin: 07/13/18 14:46 Dose: 25 mg Hydromorphone HCl (Dilaudid) 0.5 mg IV NOW ONE Stop: 07/13/18 14:32 Last Admin: 07/13/18 14:46 Dose: 0.5 mg Sodium Chloride (Normal Saline 0.9%) 1,000 mls @ 1,000 mls/hr IV BOLUS ONE Stop: 07/13/18 15:30 Last Infusion: 07/13/18 17:23 Dose: 0 mls/hr Admin: 07/13/18 14:46 Dose: 1,000 mls/hr Vital Signs - 8 hr 07/13/18 14:15 Temperature 98.4 F Pulse Rate 81 Respiratory Rate 18 Blood Pressure 150/98 H Pulse Oximetry 98 <Bar Astudillo DO - Last Filed: 07/13/18 23:16> Orders Ordered: ED Orders 07/13/18 14:31 US pelvic complete Stat 07/13/18 14:40 Complete Blood Count AUTO DIFF Stat Comprehensive Metabolic Panel Stat Lipase Stat Discontinued Medications Diphenhydramine HCl (Benadryl) 25 mg IV NOW ONE Stop: 07/13/18 14:32 Last Admin: 07/13/18 14:46 Dose: 25 mg Hydromorphone HCl (Dilaudid) 0.5 mg IV NOW ONE Stop: 07/13/18 14:32 Last Admin: 07/13/18 14:46 Dose: 0.5 mg Sodium Chloride (Normal Saline 0.9%) 1,000 mls @ 1,000 mls/hr IV BOLUS ONE Stop: 07/13/18 15:30 Last Infusion: 07/13/18 17:23 Dose: 0 mls/hr Admin: 07/13/18 14:46 Dose: 1,000 mls/hr Vital Signs - 8 hr 07/13/18 14:15 Temperature 98.4 F Pulse Rate 81 Respiratory Rate 18 Blood Pressure 150/98 H Pulse Oximetry 98 MDM - Female Genitourinary <GURJIT Shields - Last Filed: 07/13/18 22:32> Lab Data Result diagrams: 07/13/18 14:40 07/13/18 14:40 Lab Results 07/13/18 07/13/18 Range/Units 14:40 14:40 WBC 9.6 (4.5-11.0) X10^3/uL RBC 4.74 (4.0-5.2) X10^6/uL Hgb 13.4 (12.0-16.0) g/dL Hct 39.2 (36-46) % MCV 82.7 (80-100) fL MCH 28.2 (26-34) PG MCHC 34.2 (30-36) % RDW 13.4 (11.6-14.8) % Plt Count 234 (150-400) X10^3/uL Neut % (Auto) 66.6 (50-75) % Lymph % (Auto) 23.8 L (25-40) % [place] % (Auto) 6.2 (3-14) % Eos % (Auto) 2.5 (2-4) % Baso % (Auto) 0.9 (0-2) % Neut # (Auto) 6400 (4058-3905) /uL Lymph # (Auto) 2300 (9557-0815) /uL [place] # (Auto) 600 (0-900) /uL Eos # (Auto) 200 (0-450) /uL Baso # (Auto) 100 (0-100) /uL Sodium 137 (137-145) mmol/L Potassium 4.0 (3.4-5.1) mmol/L Chloride 103 (98-107) mmol/L Carbon Dioxide 23 (22-32) mmol/L BUN 10 (7-17) mg/dL Creatinine 0.80 (0.52-1.04) mg/dL Estimated GFR > 60.0 (>60) mL/min BUN/Creatinine Ratio 12.5 (6-22) Glucose 101 H (70-100) mg/dL Calcium 9.6 (8.4-10.2) mg/dL Total Bilirubin 0.6 (0.2-1.3) mg/dL AST 35 (14-36) IU/L ALT 37 (9-52) IU/L Alkaline Phosphatase 53 (38-126) U/L Total Protein 7.3 (6.3-8.2) g/dL Albumin 4.4 (3.5-5.0) g/dL Globulin 2.9 (1.7-4.1) g/dL Albumin/Globulin Ratio 1.5 (1.0-2.8) Lipase 74 (23-300) U/L Point of Care Testing Test Results Negative Urine Dip Bedside Urine Glucose Negative Bedside Urine Bilirubin - Negative Bedside Urine Ketone - Negative Urine Specific [place] 1.020 Bedside Urine Occult Blood +/- Bedside Urine pH 6.0 Bedside Urine Protein - Negative Bedside Urine Urobilinogen - Negative Bedside Urine Nitrite - Negative Bedside Urine Leukocytes +/- 15 Esterase Imaging Data Pelvic ultrasound : Radiologist's impression: [address] [address] Ultrasound Report Signed Patient: Dixie Ann JMR#: [id number] : 1985Acct:[id number] Age/Sex: 32 / FDate of Service: 07/13/18 Loc: ED Accession Number: [id number] Procedure: US pelvic complete Ordering Provider: Miguel Cole PROCEDURE: US PELVIC COMPLETE INDICATIONS: CONITNUED RIGHT PELVIC PAIN TECHNIQUE: Real-time scanning was performed of the pelvic organs, with image documentation. Additional endovaginal scanning was necessary due to incomplete visualization of the adnexal and endometrial structures by transabdominal scanning. COMPARISON: [facility], CT, CT ABDOMEN PELVIS W CON, 07/07/2018, 19:33. [facility], US, US PELVIC COMPLETE, 07/07/2018, 18:40. FINDINGS: Transabdominal scanning: Limited scanning through the kidneys shows no hydronephrosis. No pathologic free abdominal or pelvic fluid. Endovaginal scanning: Uterus: Uterus is normal in size at 3.1 x 5.2 x 7.7 cm. The endometrial canal contains a IUD centrally positioned. Ovaries: The right ovary measures 3.3 x 3.1 x 4.3 cm overall, with a right ovarian cyst now measuring 3.9 x 3.0 x 2.8 cm with complex low-level internal echoes (previously measuring 2.6 x 2.2 x 2.1 cm 07/07/18). The left ovary measures 2.8 x 1.6 x 2.2 cm. IMPRESSION: Centrally positioned IUD within the endometrial canal. Note is again made of a complex appearing nabothian cyst at the right cervix measuring 1.3 x 1.0 x 1.0 cm, containing low-level internal echoes. Additionally, the right ovary contains a enlarging cyst that had previously measured approximately 2.6 cm in maximal dimension and now measures 3.9 cm (6 days difference). This likely indicates a hemorrhagic right ovarian cyst as the underlying cause of that appearance. Followup evaluation of both the cervical complex cyst in the right complex ovarian cyst is recommended in 6-8 weeks. Should these persist followup by gynecological consultation would be recommended. Dictated by: Amador Musa M.D. on 07/13/2018 at 15:35 Approved by: Amador Musa M.D. on 07/13/2018 at 15:40 MDM Narrative Medical decision making narrative: Pelvic ultrasound was obtained and shows worsening right ovarian cyst now 3.9 cm versus 2.5 last week. Complex presentation indicating most likely hemorrhagic cyst. Will have patient follow up with her forgesmith in next couple days with her scheduled appointment. She is treated with Tarkio for breakthrough pain not covered by [id number] ibuprofen. For any worsening symptoms return to the emergency room. <Bar Astudillo, - Last Filed: 07/13/18 23:16> Lab Data Lab Results 07/13/18 07/13/18 Range/Units 14:40 14:40 WBC 9.6 (4.5-11.0) X10^3/uL RBC 4.74 (4.0-5.2) X10^6/uL Hgb 13.4 (12.0-16.0) g/dL Hct 39.2 (36-46) % MCV 82.7 (80-100) fL MCH 28.2 (26-34) PG MCHC 34.2 (30-36) % RDW 13.4 (11.6-14.8) % Plt Count 234 (150-400) X10^3/uL Neut % (Auto) 66.6 (50-75) % Lymph % (Auto) 23.8 L (25-40) % [place] % (Auto) 6.2 (3-14) % Eos % (Auto) 2.5 (2-4) % Baso % (Auto) 0.9 (0-2) % Neut # (Auto) 6400 (6025-3309) /uL Lymph # (Auto) 2300 (7732-2348) /uL [place] # (Auto) 600 (0-900) /uL Eos # (Auto) 200 (0-450) /uL Baso # (Auto) 100 (0-100) /uL Sodium 137 (137-145) mmol/L Potassium 4.0 (3.4-5.1) mmol/L Chloride 103 (98-107) mmol/L Carbon Dioxide 23 (22-32) mmol/L BUN 10 (7-17) mg/dL Creatinine 0.80 (0.52-1.04) mg/dL Estimated GFR > 60.0 (>60) mL/min BUN/Creatinine Ratio 12.5 (6-22) Glucose 101 H (70-100) mg/dL Calcium 9.6 (8.4-10.2) mg/dL Total Bilirubin 0.6 (0.2-1.3) mg/dL AST 35 (14-36) IU/L ALT 37 (9-52) IU/L Alkaline Phosphatase 53 (38-126) U/L Total Protein 7.3 (6.3-8.2) g/dL Albumin 4.4 (3.5-5.0) g/dL Globulin 2.9 (1.7-4.1) g/dL Albumin/Globulin Ratio 1.5 (1.0-2.8) Lipase 74 (23-300) U/L Point of Care Testing Test Results Negative Urine Dip Bedside Urine Glucose Negative Bedside Urine Bilirubin - Negative Bedside Urine Ketone - Negative Urine Specific [place] 1.020 Bedside Urine Occult Blood +/- Bedside Urine pH 6.0 Bedside Urine Protein - Negative Bedside Urine Urobilinogen - Negative Bedside Urine Nitrite - Negative Bedside Urine Leukocytes +/- 15 Esterase Discharge Plan Departure Patient Disposition: Home Clinical Impression: Ovarian cyst Qualifiers: Laterality: right Qualified Code(s): N83.201 - Unspecified ovarian cyst, right side Discharge Date/Time: 07/13/18 17:24 Interventions: ED Discharge Assessment Last Done: 07/13/18 17:22 Instructions: DI for Ovarian Cyst Activity Restrictions/Additional Instructions: Laboratory results today were unremarkable. Pelvic ultrasound shows right ovarian cyst that has increased in size to 3.9 cm rice 2.5 cm last week. Pain presents as being secondary to the ovarian cyst. Follow-up with your forgesmith provider in the next couple days as scheduled. Use [id number] ibuprofen as needed for any discomfort. Small amount of Tarkio is prescribed for any breakthrough pain. No driving on the Tarkio. For any worsening symptoms return to the emergency room. Prescriptions: New hydrocodone-acetaminophen [Tarkio] 5-325 mg tablet 1 tab PO Q6H PRN (Reason: pain) Qty: 10 RF: 0 No Action epinephrine 0.3 MG/0.3 ML auto-injector 0.3 mg IJ PRN PRN (Reason: Allergic Reaction) Qty: 0 RF: 0 ibuprofen 800 MG tablet 800 mg PO TIDP PRN (Reason: pain) Qty: 0 RF: 0 acetaminophen 650 mg tablet extended release 650 mg PO PRN PRN (Reason: pain) Qty: 0 RF: 0 alprazolam [Xanax] 0.5 MG tablet 0.5 mg PO BID PRN (Reason: Anxiety) Qty: 0 RF: 0 Midol 500 MG/25 MG tablet 2 tab PO Q6HP PRN (Reason: cramps) Qty: 0 RF: 0 doxycycline hyclate 100 mg capsule 100 mg PO BID 14 Days Qty: 28 RF: 0 nitrofurantoin monohyd/m-cryst [Macrobid] 100 mg capsule 100 mg PO BID Qty: 20 RF: 0 ketoconazole 2 % shampoo 1 applic topical DIRECTED RF: 0 clobetasol 0.05 % solution 1 applic topical DIRECTED RF: 0 fluocinolone and shower cap 0.01 % oil 1 applic topical DIRECTED RF: 0 Prilosec OTC 20 mg Tablet,Delayed Release (Dr/Ec) 20 mg PO QAM RF: 0 Referrals: Kevin Cox [Primary Care Provider] - <Bar Astudillo DO - Last Filed: 07/13/18 23:16> Cosign ED Attending Mickyature Attestation: I was available for consultation during this patient's emergency department encounter
[2018-07-13] MEDS: HYDROMORPHONE 1 MG INJ 0.5 MG IV (14:46)
[2018-07-13] MEDS: SODIUM CHLORIDE 0.9% 1,000 ML 1000 ML IV (14:46)
[2018-07-13] MEDS: diphenhydrAMINE 50 MG/ML VIAL 25 MG IV (14:46)
[2018-07-13 14:49] LABS: Add Manual Diff / Slide Review NO; Basophils Absolute Auto 100 /uL (0-100); Basophils Percent Auto 0.9 % (0-2); Eosinophils Absolute Auto 200 /uL (0-450); Eosinophils Percent Auto 2.5 % (2-4); Hematocrit 39.2 % (36-46); Hemoglobin 13.4 g/dL (12.0-16.0); Lymphocytes Absolute Auto 2300 /uL (1100-4500); Lymphocytes Percent Auto 23.8 % (25-40); Mean Corpuscular HGB Conc 34.2 % (30-36); Mean Corpuscular Hemoglobin 28.2 PG (26-34); Mean Corpuscular Volume 82.7 fL (80-100); Monocytes Absolute Auto 600 /uL (0-900); Monocytes Percent Auto 6.2 % (3-14); Neutrophils Absolute Auto 6400 /uL (1500-7000); Neutrophils Percent Auto 66.6 % (50-75); Platelet Count 234 X10^3/uL (150-400); Red Blood Cell Count 4.74 X10^6/uL (4.0-5.2); Red Cell Distribution Width 13.4 % (11.6-14.8); White Blood Cell Count 9.6 X10^3/uL (4.5-11.0)
[2018-07-13 15:06] LABS: Alanine Aminotransferase 37 IU/L (9-52); Albumin 4.4 g/dL (3.5-5.0); Albumin Globulin Ratio 1.5 (1.0-2.8); Alkaline Phosphatase 53 U/L (38-126); Aspartate Aminotransferase 35 IU/L (14-36); BUN Creatinine Ratio 12.5 (6-22); Bilirubin Total 0.6 mg/dL (0.2-1.3); Blood Urea Nitrogen 10 mg/dL (7-17); Calcium 9.6 mg/dL (8.4-10.2); Carbon Dioxide 23 mmol/L (22-32); Chloride 103 mmol/L (98-107); Estimated Glomerular Filt Rate > 60.0 mL/min (>60); Globulin 2.9 g/dL (1.7-4.1); Glucose 101 mg/dL (70-100); HEMOLYSIS < 15 (0-50); Lipase 74 U/L (23-300); Sodium 137 mmol/L (137-145); Total Protein 7.3 g/dL (6.3-8.2)
--- NOTE | 2018-07-13 15:41 | PC.NURSE ---
in stretcher/ on cell phone, so at bedside. states pain much better.
--- NOTE | 2018-07-13 17:14 | ED_ITS ---
HPI - Female Genitourinary <GURJIT Shields - Last Filed: 07/13/18 22:32> General Chief complaint: Urogenital-Female Stated complaint: lower right abdominal pain,cannot feel right leg Time Seen by Provider: 07/13/18 14:13 Source: patient Mode of arrival: ambulatory Limitations: no limitations History of Present Illness HPI Narrative: 32-year-old healthy female that is a nonsmoker for complaint of having pain to her right lower quadrant/pelvic region for the past week. She has been seen in the emergency room for this a couple times approximately 6 days ago she had an ultrasound that showed a right ovarian cyst and also a CT that also showed right ovarian cyst no other acute findings were found. She was seen in the emergency room last night due to pain and was treated for concern for PID with antibiotics. She reports worsening pain today. She states the pain radiates down into her left thigh area. She states she has had a thickened vaginal discharge over no vaginal bleeding. She has an IUD which was verified in place last night while in the emergency room. She denies any urinary symptoms at this timeframe. No fevers. Positive p.o. intake. No nausea vomiting. She denies any stressors relievers of her discomfort. No flank pain. MD Complaint: pelvic pain Related Data Home Medications Medication Instructions Recorded Confirmed Midol 2 tab PO Q6HP PRN #0 03/03/17 07/13/18 acetaminophen 650 mg PO PRN PRN #0 03/03/17 07/13/18 alprazolam [Xanax] 0.5 mg PO BID PRN #0 03/03/17 07/13/18 epinephrine 0.3 mg IJ PRN PRN #0 03/03/17 07/13/18 ibuprofen 800 mg PO TIDP PRN #0 03/03/17 07/13/18 clobetasol 1 applic TOPICAL DIRECTED 07/13/18 07/13/18 fluocinolone and shower cap 1 applic TOPICAL DIRECTED 07/13/18 07/13/18 ketoconazole 1 applic TOPICAL DIRECTED 07/13/18 07/13/18 omeprazole magnesium [Prilosec OTC] 20 mg PO QAM 07/13/18 07/13/18 Previous Rx's Medication Instructions Recorded nitrofurantoin monohyd/m-cryst 100 mg PO BID #20 cap 07/07/18 [Macrobid] doxycycline hyclate 100 mg PO BID 14 Days #28 cap 07/12/18 hydrocodone-acetaminophen [Newton] 1 tab PO Q6H PRN #10 tab 07/13/18 Allergies Allergy/AdvReac Type Severity Reaction Status Date / Time ondansetron [ONDANSETRON] Allergy Severe severe Verified 07/12/18 22:02 nausea. peanut [PEANUT] Allergy Severe ANAPHYLAXIS Verified 07/12/18 22:02 latex [LATEX] Allergy Unknown RASH Verified 07/12/18 22:02 Sulfa (Sulfonamide Allergy Unknown RASH Verified 07/12/18 22:02 Antibiotics) [SULFA (SULFONAMIDE ANTIBIOTICS)] povidone-iodine Allergy Rash Verified 07/12/18 22:02 [From Betadine] soap [From Betadine] Allergy Rash Verified 07/12/18 22:02 Review of Systems <GURJIT Shields - Last Filed: 07/13/18 22:32> Constitutional Denies chills, Denies fever(s), Denies lethargy and Denies weakness Eyes Denies change in vision, Denies eye discharge, Denies irritation and Denies loss of vision ENT Ears, Nose, Mouth, and Throat: Denies change in voice, Denies neck pain, Denies sore throat and Denies throat swelling Cardiovascular Denies chest pain, Denies irregular heart rhythm, Denies lightheadedness, Denies palpitations and Denies orthopnea Respiratory Denies wheezing Gastrointestinal Comments: Right pelvic pain Genitourinary Denies hematuria, Denies flank pain, Denies urinary incontinence and Denies urinary urgency Musculoskeletal Denies neck pain Integumentary/Breasts Denies pruritus, Denies erythema, Denies rash and Denies wounds Neurologic Denies confusion, Denies loss of vision and Denies weakness Psychiatric Denies anxiety, Denies confusion, Denies depression, Denies homicidal ideation and Denies suicidal ideation Endocrine Denies palpitations Hematologic/Lymphatic Denies easy bruising Allergic/Immunologic Denies urticaria, Denies throat swelling and Denies wheezing PFSH <GURJIT Shields - Last Filed: 07/13/18 22:32> Medical History Healthy adult (Acute) Social History Smoking Status: Never smoker Social History Smoking Status: Never smoker Exam <GURJIT Shields - Last Filed: 07/13/18 22:32> Initial Vital Signs Initial Vital Signs: Vital Signs Temperature 98.4 F 07/13/18 14:15 Pulse Rate 81 07/13/18 14:15 Respiratory Rate 18 07/13/18 14:15 Blood Pressure 150/98 H 07/13/18 14:15 Pulse Oximetry 98 07/13/18 14:15 Const General: cooperative and well developed Nutritional Appearance: well nourished Orientation: alert, awake, oriented x3 and not confused HENMT Mouth: oral mucosae normal and moist mucous membranes Eyes Conjunctivae: conjunctivae normal Sclera: sclerae normal Pupils: PERRL EOM: EOM intact bilaterally Cardio Rate: regular rate Rhythm: regular rhythm Heart Sounds: no click, no gallops, no murmurs and no rubs Pulses: normal peripheral pulses GI Inspection: non-distended Palpation: soft, no hepatosplenomegaly, No guarding, No pulsatile mass and No tender Auscultation: normal bowel sounds Other: Tenderness to the right pelvic region. General: No CVA tenderness Neuro General: alert, oriented x3, gait normal and no focal motor deficits Speech: speech normal Extrem General: full ROM, no clubbing, cyanosis or edema, no pedal edema and no calf tenderness Other: Right leg with no tenderness. No signs of trauma. Distal sensation is intact. Distal range of motions intact for distal pulses are intact. <Bar Astudillo DO - Last Filed: 07/13/18 23:16> Initial Vital Signs Initial Vital Signs: Vital Signs Temperature 98.4 F 07/13/18 14:15 Pulse Rate 81 07/13/18 14:15 Respiratory Rate 18 07/13/18 14:15 Blood Pressure 150/98 H 07/13/18 14:15 Pulse Oximetry 98 07/13/18 14:15 Course <GURJIT Shields - Last Filed: 07/13/18 22:32> Orders Ordered: ED Orders 07/13/18 14:31 US pelvic complete Stat 07/13/18 14:40 Complete Blood Count AUTO DIFF Stat Comprehensive Metabolic Panel Stat Lipase Stat Discontinued Medications Diphenhydramine HCl (Benadryl) 25 mg IV NOW ONE Stop: 07/13/18 14:32 Last Admin: 07/13/18 14:46 Dose: 25 mg Hydromorphone HCl (Dilaudid) 0.5 mg IV NOW ONE Stop: 07/13/18 14:32 Last Admin: 07/13/18 14:46 Dose: 0.5 mg Sodium Chloride (Normal Saline 0.9%) 1,000 mls @ 1,000 mls/hr IV BOLUS ONE Stop: 07/13/18 15:30 Last Infusion: 07/13/18 17:23 Dose: 0 mls/hr Admin: 07/13/18 14:46 Dose: 1,000 mls/hr Vital Signs - 8 hr 07/13/18 14:15 Temperature 98.4 F Pulse Rate 81 Respiratory Rate 18 Blood Pressure 150/98 H Pulse Oximetry 98 <Bar Astudillo DO - Last Filed: 07/13/18 23:16> Orders Ordered: ED Orders 07/13/18 14:31 US pelvic complete Stat 07/13/18 14:40 Complete Blood Count AUTO DIFF Stat Comprehensive Metabolic Panel Stat Lipase Stat Discontinued Medications Diphenhydramine HCl (Benadryl) 25 mg IV NOW ONE Stop: 07/13/18 14:32 Last Admin: 07/13/18 14:46 Dose: 25 mg Hydromorphone HCl (Dilaudid) 0.5 mg IV NOW ONE Stop: 07/13/18 14:32 Last Admin: 07/13/18 14:46 Dose: 0.5 mg Sodium Chloride (Normal Saline 0.9%) 1,000 mls @ 1,000 mls/hr IV BOLUS ONE Stop: 07/13/18 15:30 Last Infusion: 07/13/18 17:23 Dose: 0 mls/hr Admin: 07/13/18 14:46 Dose: 1,000 mls/hr Vital Signs - 8 hr 07/13/18 14:15 Temperature 98.4 F Pulse Rate 81 Respiratory Rate 18 Blood Pressure 150/98 H Pulse Oximetry 98 MDM - Female Genitourinary <GURJIT Sheilds - Last Filed: 07/13/18 22:32> Lab Data Result diagrams: 07/13/18 14:40 07/13/18 14:40 Lab Results 07/13/18 07/13/18 Range/Units 14:40 14:40 WBC 9.6 (4.5-11.0) X10^3/uL RBC 4.74 (4.0-5.2) X10^6/uL Hgb 13.4 (12.0-16.0) g/dL Hct 39.2 (36-46) % MCV 82.7 (80-100) fL MCH 28.2 (26-34) PG MCHC 34.2 (30-36) % RDW 13.4 (11.6-14.8) % Plt Count 234 (150-400) X10^3/uL Neut % (Auto) 66.6 (50-75) % Lymph % (Auto) 23.8 L (25-40) % [place] % (Auto) 6.2 (3-14) % Eos % (Auto) 2.5 (2-4) % Baso % (Auto) 0.9 (0-2) % Neut # (Auto) 6400 (9634-3402) /uL Lymph # (Auto) 2300 (2725-9477) /uL [place] # (Auto) 600 (0-900) /uL Eos # (Auto) 200 (0-450) /uL Baso # (Auto) 100 (0-100) /uL Sodium 137 (137-145) mmol/L Potassium 4.0 (3.4-5.1) mmol/L Chloride 103 (98-107) mmol/L Carbon Dioxide 23 (22-32) mmol/L BUN 10 (7-17) mg/dL Creatinine 0.80 (0.52-1.04) mg/dL Estimated GFR > 60.0 (>60) mL/min BUN/Creatinine Ratio 12.5 (6-22) Glucose 101 H (70-100) mg/dL Calcium 9.6 (8.4-10.2) mg/dL Total Bilirubin 0.6 (0.2-1.3) mg/dL AST 35 (14-36) IU/L ALT 37 (9-52) IU/L Alkaline Phosphatase 53 (38-126) U/L Total Protein 7.3 (6.3-8.2) g/dL Albumin 4.4 (3.5-5.0) g/dL Globulin 2.9 (1.7-4.1) g/dL Albumin/Globulin Ratio 1.5 (1.0-2.8) Lipase 74 (23-300) U/L Point of Care Testing Test Results Negative Urine Dip Bedside Urine Glucose Negative Bedside Urine Bilirubin - Negative Bedside Urine Ketone - Negative Urine Specific [place] 1.020 Bedside Urine Occult Blood +/- Bedside Urine pH 6.0 Bedside Urine Protein - Negative Bedside Urine Urobilinogen - Negative Bedside Urine Nitrite - Negative Bedside Urine Leukocytes +/- 15 Esterase Imaging Data Pelvic ultrasound : Radiologist's impression: [address] [address] Ultrasound Report Signed Patient: Dixie Ann JMR#: [id number] : 1985Acct:[id number] Age/Sex: 32 / FDate of Service: 07/13/18 Loc: ED Accession Number: [id number] Procedure: US pelvic complete Ordering Provider: Miguel Cole PROCEDURE: US PELVIC COMPLETE INDICATIONS: CONITNUED RIGHT PELVIC PAIN TECHNIQUE: Real-time scanning was performed of the pelvic organs, with image documentation. Additional endovaginal scanning was necessary due to incomplete visualization of the adnexal and endometrial structures by transabdominal scanning. COMPARISON: Merged With [facility], CT, CT ABDOMEN PELVIS W CON, 07/07/2018, 19:33. Merged With [facility], US, US PELVIC COMPLETE, 07/07/2018, 18:40. FINDINGS: Transabdominal scanning: Limited scanning through the kidneys shows no hydronephrosis. No pathologic free abdominal or pelvic fluid. Endovaginal scanning: Uterus: Uterus is normal in size at 3.1 x 5.2 x 7.7 cm. The endometrial canal contains a IUD centrally positioned. Ovaries: The right ovary measures 3.3 x 3.1 x 4.3 cm overall, with a right ovarian cyst now measuring 3.9 x 3.0 x 2.8 cm with complex low-level internal echoes (previously measuring 2.6 x 2.2 x 2.1 cm 07/07/18). The left ovary measures 2.8 x 1.6 x 2.2 cm. IMPRESSION: Centrally positioned IUD within the endometrial canal. Note is again made of a complex appearing nabothian cyst at the right cervix measuring 1.3 x 1.0 x 1.0 cm, containing low-level internal echoes. Additionally, the right ovary contains a enlarging cyst that had previously measured approximately 2.6 cm in maximal dimension and now measures 3.9 cm (6 days difference). This likely indicates a hemorrhagic right ovarian cyst as the underlying cause of that appearance. Followup evaluation of both the cervical complex cyst in the right complex ovarian cyst is recommended in 6-8 weeks. Should these persist followup by gynecological consultation would be recommended. Dictated by: Amador Musa M.D. on 07/13/2018 at 15:35 Approved by: Amador Musa M.D. on 07/13/2018 at 15:40 MDM Narrative Medical decision making narrative: Pelvic ultrasound was obtained and shows worsening right ovarian cyst now 3.9 cm versus 2.5 last week. Complex presen tation indicating most likely hemorrhagic cyst. Will have patient follow up with her log getter in next couple days with her scheduled appointment. She is treated with Newton for breakthrough pain not covered by [id number] ibuprofen. For any worsening symptoms return to the emergency room. <Bar Astudillo, DO - Last Filed: 07/13/18 23:16> Lab Data Lab Results 07/13/18 07/13/18 Range/Units 14:40 14:40 WBC 9.6 (4.5-11.0) X10^3/uL RBC 4.74 (4.0-5.2) X10^6/uL Hgb 13.4 (12.0-16.0) g/dL Hct 39.2 (36-46) % MCV 82.7 (80-100) fL MCH 28.2 (26-34) PG MCHC 34.2 (30-36) % RDW 13.4 (11.6-14.8) % Plt Count 234 (150-400) X10^3/uL Neut % (Auto) 66.6 (50-75) % Lymph % (Auto) 23.8 L (25-40) % [place] % (Auto) 6.2 (3-14) % Eos % (Auto) 2.5 (2-4) % Baso % (Auto) 0.9 (0-2) % Neut # (Auto) 6400 (6037-6828) /uL Lymph # (Auto) 2300 (3744-5992) /uL [place] # (Auto) 600 (0-900) /uL Eos # (Auto) 200 (0-450) /uL Baso # (Auto) 100 (0-100) /uL Sodium 137 (137-145) mmol/L Potassium 4.0 (3.4-5.1) mmol/L Chloride 103 (98-107) mmol/L Carbon Dioxide 23 (22-32) mmol/L BUN 10 (7-17) mg/dL Creatinine 0.80 (0.52-1.04) mg/dL Estimated GFR > 60.0 (>60) mL/min BUN/Creatinine Ratio 12.5 (6-22) Glucose 101 H (70-100) mg/dL Calcium 9.6 (8.4-10.2) mg/dL Total Bilirubin 0.6 (0.2-1.3) mg/dL AST 35 (14-36) IU/L ALT 37 (9-52) IU/L Alkaline Phosphatase 53 (38-126) U/L Total Protein 7.3 (6.3-8.2) g/dL Albumin 4.4 (3.5-5.0) g/dL Globulin 2.9 (1.7-4.1) g/dL Albumin/Globulin Ratio 1.5 (1.0-2.8) Lipase 74 (23-300) U/L Point of Care Testing Test Results Negative Urine Dip Bedside Urine Glucose Negative Bedside Urine Bilirubin - Negative Bedside Urine Ketone - Negative Urine Specific [place] 1.020 Bedside Urine Occult Blood +/- Bedside Urine pH 6.0 Bedside Urine Protein - Negative Bedside Urine Urobilinogen - Negative Bedside Urine Nitrite - Negative Bedside Urine Leukocytes +/- 15 Esterase Discharge Plan Departure Patient Disposition: Home Clinical Impression: Ovarian cyst Qualifiers: Laterality: right Qualified Code(s): N83.201 - Unspecified ovarian cyst, right side Discharge Date/Time: 07/13/18 17:24 Interventions: ED Discharge Assessment Last Done: 07/13/18 17:22 Instructions: DI for Ovarian Cyst Activity Restrictions/Additional Instructions: Laboratory results today were unremarkable. Pelvic ultrasound shows right ovarian cyst that has increased in size to 3.9 cm rice 2.5 cm last week. Pain presents as being secondary to the ovarian cyst. Follow-up with your log getter provider in the next couple days as scheduled. Use [id number] ibuprofen as needed for any discomfort. Small amount of [place] is prescribed for any breakthrough pain. No driving on the [place]. For any worsening symptoms return to the emergency room. Prescriptions: New hydrocodone-acetaminophen [[place]] 5-325 mg tablet 1 tab PO Q6H PRN (Reason: pain) Qty: 10 RF: 0 No Action epinephrine 0.3 MG/0.3 ML auto-injector 0.3 mg IJ PRN PRN (Reason: Allergic Reaction) Qty: 0 RF: 0 ibuprofen 800 MG tablet 800 mg PO TIDP PRN (Reason: pain) Qty: 0 RF: 0 acetaminophen 650 mg tablet extended release 650 mg PO PRN PRN (Reason: pain) Qty: 0 RF: 0 alprazolam [Xanax] 0.5 MG tablet 0.5 mg PO BID PRN (Reason: Anxiety) Qty: 0 RF: 0 Midol 500 MG/25 MG tablet 2 tab PO Q6HP PRN (Reason: cramps) Qty: 0 RF: 0 doxycycline hyclate 100 mg capsule 100 mg PO BID 14 Days Qty: 28 RF: 0 nitrofurantoin monohyd/m-cryst [Macrobid] 100 mg capsule 100 mg PO BID Qty: 20 RF: 0 ketoconazole 2 % shampoo 1 applic topical DIRECTED RF: 0 clobetasol 0.05 % solution 1 applic topical DIRECTED RF: 0 fluocinolone and shower cap 0.01 % oil 1 applic topical DIRECTED RF: 0 Prilosec OTC 20 mg Tablet,Delayed Release (Dr/Ec) 20 mg PO QAM RF: 0 Referrals: Kevin Cox [Primary Care Provider] - <Bar Astudillo DO - Last Filed: 07/13/18 23:16> Cosign ED Attending Cossanjivature Attestation: I was available for consultation during this patient's emergency department encounter
== END 2018-07-13 17:24 | disposition home or self-care (01) ==
PROVIDERS: Emergency Provider Nurse Practitioner Family; Family Provider Radiology Diagnostic Radiology; PCP Radiology Diagnostic Radiology
DX: N83.201 Unspecified ovarian cyst, right side (principal)
CPT/HCPCS: 76856; 80053; 81003; 81025; 83690; 85025; 96361; 96374; 96375; 99283; 99284; J1170; J1200

== ENCOUNTER 2019-12-14 08:22 | Emergency (ER) | payer OTHER, SELFPAY ==
[2019-12-14 08:35] VITALS: BP 137/89; PULSE 77; RESP 16; TEMP 37; O2SAT 97; BMI 29.2
--- NOTE | 2019-12-14 08:35 | DI.RAD.S_ITS ---
PROCEDURE: XR FOOT RT MIN 3V INDICATIONS: Foot injury TECHNIQUE: 3 views of the foot were acquired. COMPARISON: None. FINDINGS: Bones: No fractures or dislocations. No suspicious bony lesions. Soft tissues: No tibiotalar joint effusion. Achilles tendon appears normal. IMPRESSION: No acute finding. Dictated by: Kameron Art M.D. on 12/14/2019 at 9:13 Approved by: Kameron Art M.D. on 12/14/2019 at 9:14
--- NOTE | 2019-12-14 09:09 | ED.LOWEXIN ---
HPI - Extremity Injury (Lower) General Chief Complaint: Extremity Injury, Lower Stated Complaint: right foot injury today Time Seen by Provider: 12/14/19 08:35 Source: patient Mode of arrival: Wheelchair Limitations: no limitations History of Present Illness HPI Narrative: Patient is a 34-year-old female presents with right foot injury. She slipped going down the stairs this morning while caring a box. She has significant pain on the plantar side her foot. She is unable to ambulate except for on the side of her foot. She denies any injury to her ankle or the knee. No numbness tingling or weakness MD complaint: foot injury Related Data Home Medications Medication Instructions Recorded Confirmed Midol 2 tab PO Q6HP PRN #0 03/03/17 07/13/18 acetaminophen 650 mg PO PRN PRN #0 03/03/17 07/13/18 alprazolam [Xanax] 0.5 mg PO BID PRN #0 03/03/17 07/13/18 epinephrine 0.3 mg IJ PRN PRN #0 03/03/17 07/13/18 ibuprofen 800 mg PO TIDP PRN #0 03/03/17 07/13/18 clobetasol 1 applic TOPICAL DIRECTED 07/13/18 07/13/18 fluocinolone and shower cap 1 applic TOPICAL DIRECTED 07/13/18 07/13/18 ketoconazole 1 applic TOPICAL DIRECTED 07/13/18 07/13/18 omeprazole magnesium [Prilosec OTC] 20 mg PO QAM 07/13/18 07/13/18 Previous Rx's Medication Instructions Recorded nitrofurantoin monohyd/m-cryst 100 mg PO BID #20 cap 07/07/18 [Macrobid] hydrocodone-acetaminophen [[place]] 1 tab PO Q6H PRN #10 tab 07/13/18 Allergies Allergy/AdvReac Type Severity Reaction Status Date / Time ondansetron [ONDANSETRON] Allergy Severe severe Verified 07/12/18 22:02 nausea. peanut [PEANUT] Allergy Severe ANAPHYLAXIS Verified 07/12/18 22:02 latex [LATEX] Allergy Unknown RASH Verified 07/12/18 22:02 Sulfa (Sulfonamide Allergy Unknown RASH Verified 07/12/18 22:02 Antibiotics) [SULFA (SULFONAMIDE ANTIBIOTICS)] povidone-iodine Allergy Rash Verified 07/12/18 22:02 [From Betadine] soap [From Betadine] Allergy Rash Verified 07/12/18 22:02 adhesive tape AdvReac Verified 12/14/19 08:34 Review of Systems Review of Systems Narrative: GENERAL: Denies chills,fever HEENT: Denies throat pain RESPIRATORY: Denies dyspnea, cough, wheezing CARDIOVASCULAR: Denies chest pain, palpitations GASTROINTESTINAL: Denies nausea, vomiting MUSCULOSKELETAL: See HPI SKIN: No rash, no laceration, no pruritus NEUROLOGIC: Denies weakness, dizziness, headache, numbness 8 point review of systems is negative except for those stated above and HPI Patient History Medical History GERD (gastroesophageal reflux disease) (Acute) Healthy adult (Acute) Hypertension (Acute) Social History Smoking Status: Never smoker Smoking Status: Never smoker alcohol intake frequency: a few times a month Substance Use Type: does not use Exam Initial Vital Signs Initial Vital Signs: Vital Signs Temperature 98.6 F 12/14/19 08:35 Pulse Rate 77 12/14/19 08:35 Respiratory Rate 16 12/14/19 08:35 Blood Pressure 137/89 12/14/19 08:35 Pulse Oximetry 97 12/14/19 08:35 GENERAL: Well-appearing, well-nourished and in no acute distress. CARDIOVASCULAR: peripheral pulses in tact, cap refill <2 sec RESPIRATORY: No respiratory distress, speaks in full sentences without difficulty EXTREMITIES: Normal range of motion, no clubbing or edema. Neurovascularly intact Right foot no gross bony deformity tender on the plantar side distal pedal pulse intact tender mid foot ankle is within normal limits and nontender NEUROLOGICAL: Cranial nerves II through XII grossly intact. Normal gait and speech. SKIN: Warm, dry, no petechiae, no rashes or lesions. Procedures Orthopedic Splinting/Casting Injury #1: Side: right Lower Extremity Injury Location: foot Lower Extremity Immobilizer: post-op shoe Other Orthopedic Equipment: walker Post splinting neuro exam: intact Post splinting vascular exam: intact Placed by: Nursing Course Orders Ordered: ED Orders 12/14/19 08:35 XR foot RT min 3V Stat Vital Signs Vital signs: Vital Signs - 8 hr 12/14/19 08:35 Temperature 98.6 F Pulse Rate 77 Respiratory Rate 16 Blood Pressure 137/89 Pulse Oximetry 97 MDM - Extremity Injury (Lower) Imaging Data Extremity x-ray #1: Radiologist's Impression: PROCEDURE: XR FOOT RT MIN 3V INDICATIONS: Foot injury TECHNIQUE: 3 views of the foot were acquired. COMPARISON: None. FINDINGS: Bones: No fractures or dislocations. No suspicious bony lesions. Soft tissues: No tibiotalar joint effusion. Achilles tendon appears normal. IMPRESSION: No acute finding. Dictated by: Kameron Art M.D. on 12/14/2019 at 9:13 Approved by: Kameron Art M.D. on 12/14/2019 at 9:14 Discharge Plan Departure Patient Disposition: Home Clinical Impression: Right foot sprain Qualifiers: Encounter type: initial encounter Qualified Code(s): S93.601A - Unspecified sprain of right foot, initial encounter Discharge Date/Time: 12/14/19 09:38 Instructions: DI for Foot Sprain Activity Restrictions/Additional Instructions: *You have been diagnosed with right foot sprain *What to do: Where orthopedic shoe as needed help provide support elevate, ice 20-30 minutes at a time *Continue to take medications as directed -Motrin 800 mg every 8 hours with food if needed for pain *Follow up with your primary care provider in 2-3 days *Return to ER if you should have increasing pain numbness weakness or any new, worsening or concerning symptoms Prescriptions: No Action epinephrine 0.3 MG/0.3 ML auto-injector 0.3 mg IJ PRN PRN (Reason: Allergic Reaction) Qty: 0 RF: 0 ibuprofen 800 MG tablet 800 mg PO TIDP PRN (Reason: pain) Qty: 0 RF: 0 acetaminophen 650 mg tablet extended release 650 mg PO PRN PRN (Reason: pain) Qty: 0 RF: 0 alprazolam [Xanax] 0.5 MG tablet 0.5 mg PO BID PRN (Reason: Anxiety) Qty: 0 RF: 0 Midol 500 MG/25 MG tablet 2 tab PO Q6HP PRN (Reason: cramps) Qty: 0 RF: 0 nitrofurantoin monohyd/m-cryst [Macrobid] 100 mg capsule 100 mg PO BID Qty: 20 RF: 0 ketoconazole 2 % shampoo 1 applic topical DIRECTED RF: 0 clobetasol 0.05 % solution 1 applic topical DIRECTED RF: 0 fluocinolone and shower cap 0.01 % oil 1 applic topical DIRECTED RF: 0 Prilosec OTC 20 mg Tablet,Delayed Release (Dr/Ec) 20 mg PO QAM RF: 0 hydrocodone-acetaminophen [[place]] 5-325 mg tablet 1 tab PO Q6H PRN (Reason: pain) Qty: 10 RF: 0 Referrals: [facility] [Outside]
== END 2019-12-14 09:38 | disposition home or self-care (01) ==
PROVIDERS: Emergency Provider Emergency Medicine; Family Provider Radiology Diagnostic Radiology
DX: S93.601A Unspecified sprain of right foot, initial encounter (principal); W01.0XXA Fall on same level from slipping, tripping and stumbling without subsequent striking against object, initial encounter
CPT/HCPCS: 73630; 99282; 99283